=== PATIENT | female | born 1960 | race Caucasian/White ===

== ENCOUNTER → 2020-12-04 03:57 | Outpatient (CLI) | payer OTHER, SELFPAY ==
[2020-12-05 01:38] LABS: SARS-CoV-2 RNA PCR Negative
== END ==
PROVIDERS: PCP Obstetrics & Gynecology Gynecology; Visit Provider Internal Medicine Gastroenterology
DX: Z01.812 Encounter for preprocedural laboratory examination (principal); Z20.822 Contact with and (suspected) exposure to COVID-19
CPT/HCPCS: C9803; U0003; U0005

== ENCOUNTER 2020-12-07 02:36 | Day surgery (SDC) | payer OTHER, SELFPAY ==
[2020-11-25 14:12] VITALS: BMI 19.9
[2020-12-07 12:19] VITALS: BP 149/88; PULSE 85; RESP 16; TEMP 36.1; O2SAT 98
[2020-12-07] MEDS: LACTATED RINGERS 1,000 ML 150 ML IV CONT (12:37)
--- NOTE | 2020-12-07 12:38 | P.PNAN_ITS ---
Anes - Initial Pre Proc Eval Procedure: Operation Date: 12/07/20 13:15 Proposed Procedures p Colonoscopy - Roque Montalvo MD Date/Time: 12/07/20 12:38 Surgeon: Roque Montalvo MD Pre Op Diagnosis: positive cologuard Patient Data Age: 60 Gender: F Height: 1.68 m Weight: 54.9 kg Last Vital Signs Temp 36.1 C L 12/07/20 12:19 Pulse 85 12/07/20 12:19 Resp 16 12/07/20 12:19 BP 149/88 H 12/07/20 12:19 Pulse Ox 98 12/07/20 12:19 Allergies Allergy/AdvReac Type Severity Reaction Status Date / Time DIPHENHYDRAMINE HCL Allergy Unknown Hives Uncoded 12/07/20 12:17 Home Medications Medication Instructions Recorded Confirmed Type ergocalciferol (vitamin D2) 1 unit PO WEEKLY 11/25/20 11/25/20 History [Vitamin D2] Patient hx anesthesia problems: none Family hx anesthesia problems: none [facility] Surgical History Surgical History (Updated 12/07/20 @ 12:38 by Jeremy Shay MD) H/O breast augmentation Social History Social History Smoking status: Never smoker Alcohol use details: occasional alcohol; wine 2x month Substance use: never Substance use type: does not use Living arrangements: with family Additional living arrangements comments: lives with spouse, parent, daughter, son and grandchild Gender identity (if verbalized by the patient): Female Sexual Orientation (if Verbalized by the Patient): Straight or Heterosexual Spiritual care concerns: No Anes - Eval Final PreProcedure Day of Procedure 12/07/20 12:38 Patient weight: normal Heart: regular rate and rhythm Lungs: clear to auscultation Airway: Mallampati scale class II Neurological: alert and oriented Last oral intake: >/= 8 hours ASA classification: II Emergent: no Anesthetic plan: proceed Anesthesia type and monitoring: general GIVS and standard monitoring Informed Consent: The patient's anesthetic plan and its attendant risks and benefits were discussed with the patient/family/POA. Questions were solicited and answers provided to the satisfaction of the patient/family/POA.
--- NOTE | 2020-12-07 13:08 | PM.HPGS ---
History of Present Illness History of Present Illness Consent: Risks, benefits, and alternatives have been discussed and questions answered. Patient agrees to proceed with procedure. Chief complaint: positive cologuard Narrative: Maddison Alamo is a 60 year old female with last colonoscopy 12 years ago, recent cologuard positive Review of Systems Constitutional: Constitutional: Denies headache(s) and Denies weakness Eyes: Eyes: Denies blurry vision ENT: Reports Normal hearing present, Denies headache(s) and Denies neck pain Cardiovascular: Cardiovascular: Denies chest pain and Denies dyspnea Respiratory: Respiratory: Denies dyspnea Gastrointestinal: Gastrointestinal: Reports no additional gastrointestinal complaints Genitourinary: Genitourinary: Denies dysuria Musculoskeletal: Musculoskeletal: Denies neck pain Integumentary/Breasts: Skin/Breast: Denies dry skin Neurologic: Reports Normal hearing present, Denies headache(s) and Denies weakness Psychiatric: Psychiatric: Denies anxiety Endocrine: Endocrine: Denies change in body appearance Hematologic/Lymphatic: Hematologic/Lymphatic: Denies easy bleeding Allergic/Immunologic: Allergic/Immunologic: Denies urticaria PMFSH Past Medical History Medical History (Updated 12/07/20 @ 13:09 by Roque Montalvo MD) Positive colorectal cancer screening using Cologuard test Surgical History Surgical History (Updated 12/07/20 @ 12:38 by Jeremy Shay MD) H/O breast augmentation Social History Social History Smoking status: Never smoker Alcohol use details: occasional alcohol; wine 2x month Substance use: never Substance use type: does not use Living arrangements: with family Additional living arrangements comments: lives with spouse, parent, daughter, son and grandchild Gender identity (if verbalized by the patient): Female Sexual Orientation (if Verbalized by the Patient): Straight or Heterosexual Spiritual care concerns: No Meds Home Medications and Allergies Home Medications Medication Instructions Recorded Confirmed Type ergocalciferol (vitamin D2) 1 unit PO WEEKLY 11/25/20 11/25/20 History [Vitamin D2] Allergies Allergy/AdvReac Type Severity Reaction Status Date / Time DIPHENHYDRAMINE HCL Allergy Unknown Hives Uncoded 12/07/20 12:17 Vital Signs Vital Signs - 24 hr 12/07/20 12:19 Temperature 97.0 F L Pulse Rate 85 Respiratory Rate 16 Blood Pressure 149/88 H Pulse Oximetry 98 Exam Const: General: comfortable and no acute distress HENMT: General nose exam: Normal nares present Eyes: General: appearance normal, both eyes and all related structures Neck: Neck: no JVD Resp: Auscultation: clear to auscultation bilaterally Cardio: Rate: regular rate Rhythm: regular rhythm GI: Inspection: non-distended GI Palp: Yes Soft to palpation Skin: General skin exam: normal color Neuro: General: gait normal Speech: normal speech Extrem: General: normal to inspection Psych: Mental Status: mental status grossly normal Assessment and Plan Assessment and plan (1) Positive colorectal cancer screening using Cologuard test: Code(s): R19.5 - Other fecal abnormalities Status: Acute Assessment and Plan: colonoscopy
[2020-12-07 13:37] VITALS: BP 88/43; PULSE 65; RESP 13; O2SAT 98
[2020-12-07 13:47] VITALS: BP 89/48; PULSE 62; RESP 12; O2SAT 100
[2020-12-07 13:57] VITALS: BP 105/54; PULSE 64; RESP 12; O2SAT 100
== END 2020-12-07 14:21 | disposition home or self-care (01) ==
PROVIDERS: Visit Provider Internal Medicine Gastroenterology
PROC: 0DJD8ZZ Inspection of Lower Intestinal Tract, Via Natural or Artificial Opening Endoscopic (ICD-10-PCS; CPT 45378; principal; 2020-12-07 13:15)
DX: R19.5 Other fecal abnormalities (principal); K64.8 Other hemorrhoids; K63.5 Polyp of colon
CPT/HCPCS: 45385; 45381; 88305; C9803; J2001; J2704; J7120; U0003; U0005

== ENCOUNTER 2021-07-09 11:25 | Day surgery (SDC) | payer OTHER, SELFPAY ==
[2021-06-23 15:11] VITALS: BMI 18.1
--- NOTE | 2021-06-23 15:20 | SUR.PREOP ---
PRE-OPERATIVE INSTRUCTIONS [address] [address] 1. Report to the Surgery Center Waiting Room, the entrance is the first door on the right after passing through the automatic sliding doors, at time ___1200___on date 07/09/2021___. OR Time:___1330___ . When you arrive, you and your visitor will be screened for Covid prior to entry. A mask is required within the surgery center. 2. Preoperative Covid Testing Requirements: No Covid Test Needed if: (proof is required) ? Patient has received Covid Vaccine at least 14 days prior to procedure date or ? Patient has positive Covid test result within last 90 days of surgery date. Covid Test needed if above criteria is not met: Covid testing must be conducted within 72 hours of surgery and patient is asked to isolate self from time of testing until procedure. You will be scheduled for your Preoperative testing. Your time for testing is on__07/05/2021_ (date) at time __0950___. You will go to the (Testing Site) for your preoperative testing. The Testing Site is located at [address] [place] [address]. The [facility] on [address] You will only be called if test is a positive result. 3. Patients may have clear liquids (water, carbonated beverages, clear teas, apple juice) until 3 hours prior to surgery with a maximum of 20 ounces. ? No food from midnight until time of surgery. ? Infants may have breast milk until 4 hours before surgery, formula 6 hours prior to surgery. ? Children will be allowed to drink immediately following surgery. If applicable, please bring a bottle or sippy cup to assist with drinking. Juice, water, soda, and popsicles are readily available. For infants on formula, please bring formula the day of surgery. Pacifiers are allowed. 4. Take the following medications with a SIP of water the morning of surgery: 1. n/a 2. 3. Medications to discontinue per physician order: 1. n/a date to discontinue: 5. No make-up, nail divehi, hairspray, perfume, deodorant, or body powder the day of surgery. No jewelry (including any body piercings) or valuables the day of surgery. Please take a shower or bath the night before, or the morning of, surgery with an antibacterial soap. Wear comfortable, loose fitting clothing. Children are encouraged to wear pajamas. ? Jewelry must be removed prior to entering the operating room. Rings and piercings that are not removed will be cut off. The center will not accept responsibility for valuables. Please leave all valuables, including medications, at home the day of surgery. 6. When going home after surgery, a licensed lumber driver must drive you home. NO public transportation without another adult. We recommend someone to stay with you, no alcoholic beverages, driving or important decision making for 24 hours after surgery. For pediatric surgeries, we recommend two adults to accompany a child home. (Only one will be allowed into the building with the patient) 7. 1 visitor (over age of 18) will be allowed. The visitor will drop patient off and remain in car until patient is prepared for surgery. Visitor will be called to join patient. Exceptions: Adult of a pediatric patient, patients with intellectual and/or developmental disability or cognitive impairments can accompany patient through-out visit. Visitors will need to be screened prior to coming into the center. Screening will include Covid symptom question checking. Visitor must wear a mask. Visitor will remain in patient?s room for duration of stay. 8. Follow any additional instructions given by your physician. Telephone instruction given to: patientJulio C
--- NOTE | 2021-07-08 11:18 | P.PNAN_ITS ---
Anes - Initial Pre Proc Eval Procedure: Operation Date: 07/09/21 13:30 Proposed Procedures p Bilateral Breast Implant Exchange with Capsulectomy - Fredis Monk MD Date/Time: 07/08/21 11:18 Surgeon: Fredis Monk MD Pre Op Diagnosis: History of Breast Augmentation Patient Data Age: 61 Gender: F Height: 1.68 m Weight: 51 kg Allergies Allergy/AdvReac Type Severity Reaction Status Date / Time diphenhydramine Allergy Unknown Hives Verified 07/09/21 12:11 [From Benadryl] DIPHENHYDRAMINE HCL Allergy Unknown Hives Uncoded 06/23/21 14:56 Home Medications Medication Instructions Recorded Confirmed Type ergocalciferol (vitamin D2) 1 unit PO WEEKLY 11/25/20 07/09/21 History [Vitamin D2] docusate sodium 100 mg capsule 100 mg PO DAILY #14 cap 06/23/21 07/09/21 Rx ondansetron HCl 4 mg tablet 4 mg PO Q8H #21 tablet 06/23/21 07/09/21 Rx hydrocodone 5 mg-acetaminophen 325 1 tablet PO Q6H PRN #30 tablet 06/24/21 07/09/21 Rx mg tablet Patient hx anesthesia problems: none Family hx anesthesia problems: none Results Review: All pre-operative results and documents have been reviewed as part of the pre-operative evaluation. [facility] Past Medical History Medical History Positive colorectal cancer screening using Cologuard test Surgical History Surgical History H/O breast augmentation Social History Social History Smoking status: Never smoker Alcohol intake: current Alcohol use details: occasional alcohol; wine 2x month Substance use: never Substance use type: does not use Living arrangements: with family Additional living arrangements comments: lives with spouse, parent, daughter, son and grandchild Gender identity (if verbalized by the patient): Female Sexual Orientation (if Verbalized by the Patient): Straight or Heterosexual Spiritual care concerns: No Anes - Eval Final PreProcedure Day of Procedure 07/08/21 11:18 Patient weight: thin Heart: regular rate and rhythm Lungs: clear to auscultation and normal air movement Airway: Mallampati scale class II Neurological: alert and oriented Last oral intake: >/= 8 hours ASA classification: I Emergent: no Anesthetic plan: proceed Anesthesia type and monitoring: general LMA and standard monitoring Results Review: All pre-operative results and documents have been reviewed as part of the pre-operative evaluation. Informed Consent: The patient's anesthetic plan and its attendant risks and benefits were discussed with the patient/family/POA. Questions were solicited and answers provided to the satisfaction of the patient/family/POA.
[2021-07-09] VITALS (9 sets, daily range): BP systolic 125–169; BP diastolic 86–100; PULSE 70–77; RESP 10–18; TEMP 36.4–37.4; O2SAT 100; BMI 18.8
[2021-07-09] MEDS: SCOPOLAMINE 1.5 MG PATCH TRANSDERM (12:18)
[2021-07-09] MEDS: LACTATED RINGERS 1,000 ML 30 ML IV CONT ×2 (12:18→14:56)
--- NOTE | 2021-07-09 12:41 | WPDHPUPDATE1 ---
History and Physical Update Update Date/Time: 07/09/21 12:41 History and Physical has been reviewed, including an updated exam of the patient. There are NO changes in the patient's condition. Risks, benefits, and alternatives have been discussed and questions answered. Patient agrees to proceed with procedure.
--- NOTE | 2021-07-09 12:56 | W.PM.PROC2 ---
Procedure Note - Detailed Date of Procedure 07/09/21 Pre-op Diagnosis History of Breast Augmentation Post-op Diagnosis Same Procedure Performed Bilateral breast implant exchange Surgeon Fredis Monk MD Anesthesia General Findings Bilateral ruptured implants. New implants: Lina Booker SoftTouch smooth silicone 360cc Right REF# [id number] SN [id number] Left REF# [id number] SN [id number] Description of Procedure Preoperatively the risks, benefits, alternatives were discussed in extensive detail. I want her to be very realistic about the risks involved as well as expectations. We discussed the complexity of her ruptured implants. That she may have residual silicone. She may continue to migrate laterally. This was a lengthy open-ended conversation making sure answered all of her questions to her satisfaction. I wanted her to be well informed. She voiced a clear understanding. All questions were answered consent obtained. Patient marked in the holding area with her verification. She was taken to the operating room placed supine on the operating table. Anesthesia provided by anesthesiology and prepped and draped in a standard sterile fashion. Surgical time-out was taken. 1% lidocaine and 0.25% Marcaine with epinephrine was used anesthetize locally. Tegaderm nipple Flores were placed. Fifteen blade was used to excise her old widened IMF scar. Dissection was continued down to the capsule was identified removed the entire capsule. No worrisome features. I then copiously irrigated with more than 3 L of saline solution. Inferior and laterally I secured the implant margin with 2-0 PDS in several layers. She want to stay the same plane. I then irrigated with triple antibiotic Betadine solution. Using a no-touch technique and a Soto funnel the implant was introduced into the pocket. I closed using 2-0 Vicryl followed by 3-0 Monocryl in a running subcuticular 4-0 Monocryl and tissue glue. She was woken taken to the PACU without difficulty. All instrument sponge counts were correct at the end of the case. Estimated Blood Loss 75 Drains No Packing No Pathology None sent Complications No immediate complications Condition Stable Disposition PACU
[2021-07-09] MEDS: ceFAZolin SODIUM 2 GM/20 ML SW SYRINGE IV PUSH (13:01)
[2021-07-09] MEDS: BUPIVACAINE HCL 0.25% 50 ML VIAL INFILTRATE (13:25)
[2021-07-09] MEDS: LIDO 1%/EPINEPHRINE 1:100,000 20 ML VIAL 40 ML INFILTRATE (13:25)
[2021-07-09] MEDS: ONDANSETRON INJ 4 MG/2 ML VIAL IV PUSH (15:15)
[2021-07-09] MEDS: fentaNYL CITRATE INJ (*CRX) 100 MCG/2 ML VIAL 25 MCG IV PUSH ×3 (15:18→15:41)
--- NOTE | 2021-07-09 15:34 | WPDANESPN ---
Anes - Prog Note Post-Op Date/Time: 07/09/21 15:34 Cardiovascular status: normal Respiratory status: normal Airway patency: baseline Mental status: baseline Post-Op hydration status: normal Vital Signs: Last Vital Signs Temp 36.4 C 07/09/21 14:56 Pulse 77 07/09/21 14:56 Resp 12 07/09/21 15:00 BP 125/86 07/09/21 14:56 Pulse Ox 100 07/09/21 15:00 Pain Score (VAS): 2 I/O: Intake & Output 07/08/21 07/09/21 07/09/21 23:59 07:59 15:59 Intake Total 900 Balance 900 Post-procedural complaints: none and nausea Patient Feedback: Patient satisfied with anesthetic care. Other Findings: Patient vital signs back to baseline. Patient denies nausea and vomiting. Patient's pain under control. Patient OK for discharge.
[2021-07-09] MEDS: LACTATED RINGERS 500 ML 30 ML IV CONT (15:40)
== END 2021-07-09 16:58 | disposition home or self-care (01) ==
PROVIDERS: PCP Obstetrics & Gynecology Gynecology; Visit Provider Surgery Plastic and Reconstructive Surgery
PROC: (CPT 19342; principal; 2021-07-09 13:30)
DX: Z98.82 Breast implant status (principal)
CPT/HCPCS: 19342

== ENCOUNTER → 2021-09-08 16:31 | Outpatient (REF) | payer OTHER, SELFPAY | LOC: ANHLAB 16:31 | PROVIDERS: PCP Obstetrics & Gynecology Gynecology; Visit Provider Surgery Plastic and Reconstructive Surgery | DX: L90.5 Scar conditions and fibrosis of skin (principal) | CPT/HCPCS: 88305 ==

== ENCOUNTER 2024-01-31 01:48 | Day surgery (SDC) | payer MEDICARE, SELFPAY ==
[2024-01-09 14:04] VITALS: BMI 20.6
[2024-01-31 08:08] VITALS: BP 137/85; PULSE 91; RESP 18; TEMP 36.4; O2SAT 100; BMI 20.6
--- NOTE | 2024-01-31 08:18 | P.PNAN_ITS ---
Anes - Initial Pre Proc Eval Procedure: Operation Date: 01/31/24 09:30 Proposed Procedures p Colonoscopy - Joseph Foreman MD Date/Time: 01/31/24 08:18 Surgeon: Joseph Foreman MD Pre Op Diagnosis: hx of colon polyps Patient Data Age: 63 Gender: F Height: 1.68 m Weight: 58 kg Last Vital Signs Temp 36.4 C L 01/31/24 08:08 Pulse 91 01/31/24 08:08 Resp 18 01/31/24 08:08 BP 137/85 01/31/24 08:08 Pulse Ox 100 01/31/24 08:08 O2 Del Method Room Air 01/31/24 08:08 Allergies Allergy/AdvReac Type Severity Reaction Status Date / Time diphenhydramine Allergy Unknown Hives Verified 01/31/24 08:07 [From Benadryl] Home Medications Medication Instructions Recorded Confirmed Type No Home Medications 01/09/24 01/31/24 History Patient hx anesthesia problems: none Family hx anesthesia problems: none Results Review: All pre-operative results and documents have been reviewed as part of the pre-operative evaluation. [facility] Past Medical History Medical History Positive colorectal cancer screening using Cologuard test Surgical History Surgical History H/O breast augmentation Social History Social History Smoking packs per day: 1 Smoking cigarettes per day: 20.0 Years smoked: 3 Smoking pack-years: 3.00 Smoking status: Former smoker Tobacco type: cigarettes Alcohol intake: current Drinks per week: 1 Alcohol use details: WINE Substance use: never Substance use type: does not use Living arrangements: with family Additional living arrangements comments: lives with spouse, parent, daughter, son and grandchild Gender identity (if verbalized by the patient): Female Sexual Orientation (if Verbalized by the Patient): Straight or Heterosexual Spiritual care concerns: No Anes - Eval Final PreProcedure Day of Procedure 01/31/24 08:18 Patient weight: normal Heart: regular rate and rhythm Lungs: clear to auscultation Airway: Mallampati scale class II Neurological: alert and oriented Last oral intake: >/= 8 hours ASA classification: I Emergent: no Anesthetic plan: proceed Anesthesia type and monitoring: general GIVS and standard monitoring Results Review: All pre-operative results and documents have been reviewed as part of the pre- operative evaluation. Informed Consent: The patient's anesthetic plan and its attendant risks and benefits were discussed with the patient/family/POA. Questions were solicited and answers provided to the satisfaction of the patient/family/POA.
[2024-01-31] MEDS: LACTATED RINGERS 1,000 ML 150 ML IV CONT (08:27)
--- NOTE | 2024-01-31 09:13 | PM.IMHP ---
H&P: HPI History of Present Illness Date/Time: 01/31/24 09:13 Chief Complaint: history of polyps Narrative: The patient's last colonoscopy was more than 10 years ago, when she had polyps. Here for surveillance colonoscopy. Review of Systems Review of Systems: All systems reviewed & are unremarkable except as noted in HPI and below PMFSH Past Medical History Medical History Positive colorectal cancer screening using Cologuard test Surgical History Surgical History H/O breast augmentation Social History Social History Smoking packs per day: 1 Smoking cigarettes per day: 20.0 Years smoked: 3 Smoking pack-years: 3.00 Smoking status: Former smoker Tobacco type: cigarettes Alcohol intake: current Drinks per week: 1 Alcohol use details: WINE Substance use: never Substance use type: does not use Living arrangements: with family Additional living arrangements comments: lives with spouse, parent, daughter, son and grandchild Gender identity (if verbalized by the patient): Female Sexual Orientation (if Verbalized by the Patient): Straight or Heterosexual Spiritual care concerns: No Meds Home Medications and Allergies Home Medications Medication Instructions Recorded Confirmed Type No Home Medications 01/09/24 01/31/24 History Allergies Allergy/AdvReac Type Severity Reaction Status Date / Time diphenhydramine Allergy Unknown Hives Verified 01/31/24 08:07 [From Benadryl] Vital Signs Vital Signs - 24 hr 01/31/24 08:08 Temperature 97.5 F L Pulse Rate 91 Respiratory Rate 18 Blood Pressure 137/85 Pulse Oximetry 100 Oxygen Delivery Room Air Assessment and Plan Assessment and plan (1) History of colonic polyps: Code(s): Z86.0100 - Personal history of colon polyps, unspecified Status: Acute Plan Patient deemed a good candidate for colonoscopy. Will proceed.
[2024-01-31 09:36] VITALS: BP 108/66; PULSE 68; RESP 14; O2SAT 100
[2024-01-31 09:46] VITALS: BP 110/72; PULSE 67; RESP 14; O2SAT 100
[2024-01-31 09:56] VITALS: BP 137/91; PULSE 63; RESP 25; O2SAT 100
--- NOTE | 2024-01-31 10:14 | SUR.PHASEII ---
Dr. Foreman went back with next case prior to seeing patient in recovery. Patient completed recovery time and did not wish to stay to speak with Dr. Foreman. Educated patient on procedure findings and answered all questions. Patient states she will call office with any questions.
== END 2024-01-31 10:10 | disposition home or self-care (01) ==
PROVIDERS: PCP Nurse Practitioner Family; Referring Provider Obstetrics & Gynecology Gynecology; Visit Provider Internal Medicine Gastroenterology
PROC: 0DJD8ZZ Inspection of Lower Intestinal Tract, Via Natural or Artificial Opening Endoscopic (ICD-10-PCS; CPT 45378; principal; 2024-01-31 09:30)
DX: Z12.11 Encounter for screening for malignant neoplasm of colon (principal); K64.8 Other hemorrhoids; Z98.890 Other specified postprocedural states; Z87.891 Personal history of nicotine dependence; Z86.0100 Personal history of colon polyps, unspecified
CPT/HCPCS: G0105; J2003; J2704; J7120